=== PATIENT | male | born 2000 | race Caucasian/White ===

== ENCOUNTER 2018-05-09 16:36 | Emergency (ER) | payer SELFPAY, OTHER ==
[2018-05-09] MEDS: METHYLPREDNISOLONE 125 MG INJ IM (17:44)
[2018-05-09] MEDS: ALBUTEROL 0.083% (NEB) 2.5 MG/3 ML AMP HHN ×2 (17:50→18:40)
[2018-05-09] MEDS: IPRATROPIUM (NEB) 0.5 MG/2.5 ML AMP HHN (18:40)
== END 2018-05-09 19:13 | disposition home or self-care (01) ==
LOC: FTE 16:36
DX: J45.901 Unspecified asthma with (acute) exacerbation (principal)
CPT/HCPCS: 94640; 94664; 96372; 99284-25

== ENCOUNTER 2018-11-12 07:53 | Emergency (ER) | payer BC ==
[2018-11-12] MEDS: DEXAMETHASONE 10 MG/ML 1 ML INJ IM (08:26)
[2018-11-12] MEDS: ALBUTEROL 0.083% (NEB) 2.5 MG/3 ML AMP HHN ×2 (08:31→10:00)
[2018-11-12] MEDS: IPRATROPIUM (NEB) 0.5 MG/2.5 ML AMP HHN (08:32)
[2018-11-12] MEDS ORDERED: IPRATROPIUM (NEB) 0.5 MG/2.5 ML AMP HHN (09:30)
[2018-11-12] MEDS: ALBUTEROL/IPRATROPIUM (NEB) 3 ML AMP HHN (09:54)
== END 2018-11-12 10:46 | disposition home or self-care (01) ==
LOC: FTE 07:53
DX: J45.901 Unspecified asthma with (acute) exacerbation (principal); Z87.891 Personal history of nicotine dependence
CPT/HCPCS: 94640; 94664; 96372; 99285-25